=== PATIENT | male | born 1995 | race Hispanic/Latino ===

== ENCOUNTER 2020-02-02 16:47 | Emergency (ER) | payer SELFPAY ==
[~2020-02-02] VITALS: Ht 167.6 cm; Wt 54.4 kg
--- NOTE | 2020-02-02 17:27 | Diagnostic Imaging Report ---
KNEE 3VW RT - HOPD - 3 views HISTORY: Pain. COMPARISON: None available. FINDINGS: Bones: No acute displaced fracture. Osseous alignment is within normal limits. Joints: The joint spaces are well-maintained. There is suprapatellar joint effusion. Soft tissues: The soft tissues appear unremarkable. IMPRESSION: 1. No fracture or dislocation. 2. Small to moderate suprapatellar joint effusion. Signed by: Eva Pulido MD on 02/02/2020 5:24 PM
--- OUTSIDE RECORDS SUMMARY | 2020-02-02 17:27 | XMS REPORT | Continuity of Care Document ---
Author Author [facility] Organization [facility] Address [address] [place] [address] Phone Unavailable Care Team Providers Care [facility] Administrator Name Role Phone Unavailable Unavailable Problems This patient has no known problems. Allergies, Adverse Reactions, Alerts This patient has no known allergies or adverse reactions. Medications This patient has no known medications. Procedures This patient has no known procedures. Encounters Start Date/Time End Date/Time Encounter Type Admission Type [facility] Care Department Encounter ID Source 2019-11-09 10:33:00 2019-11-09 10:33:00 Emergency E [id number] 2018-10-14 22:14:00 2018-10-14 22:14:00 Emergency E [id number] Results This patient has no known results.
[2020-02-02] MEDS ORDERED: IBUPROFEN 600 MG TAB PO STA (17:35)
--- NOTE | 2020-02-02 17:35 | Emergency Department Note ---
History of Present Illnes History of Present Illness History of Present Illness This is a 24 year old male Chief Complaint Comment PT STATES SHE IS 13.5 WEEKS PREG AND STARTED HAVING CRAMPING YESTERDAY, NO BLEEDING. PT STATES HX OF MISCARRIAGES AND IS ALSO ON LOVENOX 40MG DAILY. PT STATES CRAMPING IS SHARP AND LAST ABOUT 20 SECONDS AND ABOUT 25 MINUTES APART . Onset (how long ago): day(s) (1) Location: right knee Quality: sharp Radiation: Denies non-radiation, Denies back, Denies neck, Denies extremity, Denies abdomen, Denies periumbilical, Denies flank, Denies proximal, Denies distal, Denies other Severity: moderate Onset quality: sudden Duration (how long): day(s) (1) Timing of current episode: constant Progression: unchanged Chronicity: new Context: Denies recent illness, Denies recent surgery, Denies recent immobilization, Denies recent travel, Denies trauma/injury, Denies new medications, Denies hx of DVT/PE, Denies non-compliance w/ medications, Denies other Relieving factors: rest Exacerbating factors: movement Associated symptoms: Denies denies other symptoms, Denies confusion, Denies chest pain, Denies cough, Denies diaphoresis, Denies fever/chills, Denies headaches, Denies loss of appetite, Denies malaise, Denies nausea/vomiting, Denies rash, Denies seizure, Denies shortness of breath, Denies syncope, Denies weakness, Denies other Treatments prior to arrival: none Past Medical/Family History Physician Review I have reviewed the patient's past medical and family history. Any updates have been documented here. Past Medical History Past Medical History: None Past Surgical History: None Social History Smoking Cessation: Never Smoker Alcohol Use: None Review of Systems Review of Systems Constitutional: Reports no symptoms EENTM: Reports no symptoms Cardiovascular: Reports no symptoms Respiratory: Reports no symptoms Gastrointestinal: Reports no symptoms Genitourinary: Reports no symptoms Musculoskeletal: Reports as per HPI Integumentary: Reports no symptoms Neurological: Reports no symptoms Psychological: Reports no symptoms Endocrine: Reports no symptoms Hematological/Lymphatic: Reports no symptoms Physical Exam Related Data Vital signs reviewed: Yes Physical Exam CONSTITUTIONAL Constitutional: Present well-developed, Present well-nourished HENT HENT: Present normocephalic, Present atraumatic, Present oropharynx clear/moist, Present nose normal HENT L/R: Present left ext ear normal, Present right ext ear normal EYES Eyes: Reports PERRL, Reports conjunctivae normal NECK Neck: Present ROM normal PULMONARY Pulmonary: Present effort normal, Present breath sounds normal CARDIOVASCULAR Cardiovascular: Present regular rhythm, Present heart sounds normal, Present capillary refill normal, Present normal rate GASTROINTESTINAL Abdominal: Present soft, Present nontender, Present bowel sounds normal GENITOURINARY Genitourinary: Present exam deferred SKIN Skin: Present warm, Present dry MUSCULOSKELETAL Musculoskeletal: Present tenderness (right knee) NEUROLOGICAL Neurological: Present alert, Present oriented x 3, Present no gross motor or sensory deficits PSYCHOLOGICAL Psychological: Present mood/affect normal, Present judgement normal Results Imaging Imaging results reviewed: Yes Assessment & Plan Medical Decision Making MDM fracture,,,sprain Reassessment Reassessment better Assessment & Plan Final Impression: (1) Acute pain due to trauma (2) Contusion of knee, right Depart Disposition: HOME, SELF-CARE JUDY NOLAN MD Feb 02, 2020 17:35
[2020-02-02] MEDS ORDERED: IBUPROFEN 600 MG TAB ONE (18:15)
== END 2020-02-02 18:06 | disposition home or self-care (01) ==
LOC: FSED 17:21
DX: S80.01XA Contusion of right knee, initial encounter (principal); Y93.66 Activity, soccer; Y92.322 Soccer field as the place of occurrence of the external cause
CPT/HCPCS: 99284